=== PATIENT | male | born 1985 | race Caucasian/White ===

== ENCOUNTER 2020-06-15 08:10 | Outpatient (CLI) | payer BC | END 2020-06-15 08:11 | disposition home or self-care (01) | LOC: COV 08:10 | PROVIDERS: ATTEND Family Medicine | DX: R50.9 Fever, unspecified (principal); M79.10 Myalgia, unspecified site; R53.83 Other fatigue; R19.7 Diarrhea, unspecified; R11.2 Nausea with vomiting, unspecified; Z20.828 Contact with and (suspected) exposure to other viral communicable diseases ==

== ENCOUNTER 2021-05-06 15:28 | Outpatient (CLI) | payer BC, OTHER ==
--- NOTE | 2021-05-06 16:12 | XRAY Report ---
PROCEDURE: Humerus LT INDICATIONS: INJURY OF BICEP, LEFT POST SURGICAL INJ TECHNIQUE: 2 views of the humerus were acquired. COMPARISON: None FINDINGS: Bones: No fractures or dislocations. No suspicious bony lesions. Soft tissues: No suspicious soft tissue calcifications. IMPRESSION: No evidence acute bony abnormality of the left humerus. Reviewed by: Ezequiel Alexis MD on 05/06/2021 3:11 PM MARILYNN Approved by: Ezequiel Alexis MD on 05/06/2021 3:11 PM MARILYNN Station ID: [id number]
== END 2021-05-06 15:29 | disposition home or self-care (01) ==
LOC: DI.N 15:28
PROVIDERS: ATTEND Nurse Practitioner
DX: S46.299A Other injury of muscle, fascia and tendon of other parts of biceps, unspecified arm, initial encounter (principal)